=== PATIENT | female | born 2000 | race Two or more races ===

== ENCOUNTER 2022-12-28 15:26 | Emergency (ER) | payer OTHER ==
[~2022-12-28] VITALS: Ht 167.6 cm; Wt 62.6 kg
[2022-12-28] MEDS ORDERED: SYNTHROID75 MCG PO (15:43)
[2022-12-28] MEDS ORDERED: ZOLOFT100 MG PO (15:44)
== END 2022-12-28 19:10 | disposition home or self-care (01) ==
LOC: ER 15:26
DX: J40 Bronchitis, not specified as acute or chronic (principal); J32.9 Chronic sinusitis, unspecified; Z20.822 Contact with and (suspected) exposure to COVID-19